=== PATIENT | female | born 1950 | race Caucasian/White ===

== ENCOUNTER → 2022-03-14 | Day surgery (SDC) | payer MEDICARE, OTHER ==
[~2022-03-14] VITALS: Ht 167.6 cm; Wt 63.5 kg
[~2022-03-14] MED LIST: EUTHYROX100 MCG PO; OMEPRAZOLE 20MG20 MG PO
== END | disposition home or self-care (01) ==
LOC: FAS 05:59
DX: K62.1 Rectal polyp (principal); M19.90 Unspecified osteoarthritis, unspecified site; K21.9 Gastro-esophageal reflux disease without esophagitis; E78.00 Pure hypercholesterolemia, unspecified; E03.9 Hypothyroidism, unspecified; Z88.0 Allergy status to penicillin; Z88.5 Allergy status to narcotic agent; Z88.1 Allergy status to other antibiotic agents; Z88.2 Allergy status to sulfonamides; Z87.891 Personal history of nicotine dependence; Z79.899 Other long term (current) drug therapy
CPT/HCPCS: J2704; J7120